=== PATIENT | male | born 2000 | race Caucasian/White ===

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

== ENCOUNTER → 2021-12-03 | Outpatient (CLI) | payer OTHER ==
[2021-12-03 13:00] LABS: ALT/SGPT 41 U/L (12-78); TRIGLYCERIDES LEVEL 64 MG/DL (<150)
== END ==
LOC: M LAB 11:49
PROVIDERS: ATTEND Physician Assistant
DX: Z79.899 Other long term (current) drug therapy (principal)

== ENCOUNTER → 2022-01-07 | Outpatient (CLI) | payer OTHER ==
[2022-01-07 16:41] LABS: ALT/SGPT 44 U/L (12-78); TRIGLYCERIDES LEVEL 72 MG/DL (<150)
== END ==
LOC: M WUC 11:25
PROVIDERS: ATTEND Dermatology
DX: Z51.81 Encounter for therapeutic drug level monitoring (principal); Z79.899 Other long term (current) drug therapy

== ENCOUNTER → 2022-02-07 | Outpatient (CLI) | payer OTHER ==
[2022-02-07 16:40] LABS: ALT/SGPT 32 U/L (12-78); TRIGLYCERIDES LEVEL 73 MG/DL (<150)
== END ==
LOC: M WUC 11:13
PROVIDERS: ATTEND Dermatology
DX: Z79.899 Other long term (current) drug therapy (principal)

== ENCOUNTER → 2022-03-18 | Outpatient (CLI) | payer OTHER ==
[2022-03-18 17:22] LABS: ALT/SGPT 36 U/L (12-78); TRIGLYCERIDES LEVEL 105 MG/DL (<150)
== END ==
LOC: M WUC 11:28
PROVIDERS: ATTEND Dermatology
DX: Z79.899 Other long term (current) drug therapy (principal)

== ENCOUNTER → 2022-05-02 | Outpatient (CLI) | payer OTHER ==
[2022-05-02 15:04] LABS: ALT/SGPT 42 U/L (12-78); TRIGLYCERIDES LEVEL 71 MG/DL (<150)
== END ==
LOC: M WUC 13:12
PROVIDERS: ATTEND Dermatology
DX: Z79.899 Other long term (current) drug therapy (principal)